=== PATIENT | female | born 1960 | race African-American/Black ===

== ENCOUNTER 2022-08-10 09:15 | Emergency (ER) | payer MEDICARE, MEDICAID ==
[~2022-08-10] VITALS: Ht 167.6 cm; Wt 145.5 kg
[~2022-08-10 09:15] MED LIST: ALBU1AER4 IN; CARI-277 PO; DOCU-94 PO; METF500T PO; MONT10TA23 PO; PAR20T PO; SIMV40TA42 PO; VALS40TA2 PO
[2022-08-10] MEDS ORDERED: MECLIZINE HCL 25 MG TAB PO ONE (09:45)
[2022-08-10 10:14] LABS: Basophils # (auto) 0.1 10 ^3/uL (0-0.2); Eosinophils # (auto) 0.1 10 ^3/uL (0-0.8); Eosinophils % (auto) 2.1 % (0.0-7.0); Hematocrit 42.6 % (36.0-46.0); Hemoglobin 14.2 g/dL (12.2-16.2); Lymphocytes # (auto) 1.8 10 ^3/uL (0.4-5.4); Lymphocytes % (auto) 28.8 % (10.0-50.0); Mean Corpuscular Hemoglobin 31.3 pg (28.0-32.0); Mean Corpuscular Hgb Conc. 33.3 g/dL (32.0-36.0); Mean Corpuscular Volume 93.9 fL (80.0-100.0); Monocytes # (auto) 0.4 10 ^3/uL (0-1.3); Monocytes % (auto) 6.2 % (0.0-12.0); Neutrophils # (auto) 3.9 10 ^3/uL (1.6-8.6); Neutrophils % (auto) 61.9 % (37.0-80.0); Nucleated Red Blood Cells % 0.4 %; Red Blood Cells 4.54 10^6/uL (4.0-5.20); Red Cell Distribution Width 13.6 % (11.8-14.3); White Blood Cell 6.3 10^3/uL (4.4-10.8)
[2022-08-10 10:20] LABS: Albumin 3.6 g/dL (3.4-5.0); Calcium 8.5 mg/dL (8.5-10.1); Potassium 4.1 mmol/L (3.5-5.1)
[2022-08-10 10:23] LABS: BUN/Creatinine Ratio 17.7 (10.0-20.0); Bilirubin, Total 0.5 mg/dL (0.2-1.0); Total Protein 6.9 g/dL (6.4-8.2)
[2022-08-10] MEDS ORDERED: IOHEXOL 350 MG/ML 100ML IJ ONE (13:22)
[2022-08-10 14:43] VITALS: BP 117/69
== END 2022-08-10 14:40 | disposition home or self-care (01) ==
LOC: ER 09:15
DX: R42 Dizziness and giddiness (principal); R79.1 Abnormal coagulation profile; R07.9 Chest pain, unspecified; M54.9 Dorsalgia, unspecified; I10 Essential (primary) hypertension; E11.9 Type 2 diabetes mellitus without complications; E78.5 Hyperlipidemia, unspecified; J45.909 Unspecified asthma, uncomplicated; Z85.3 Personal history of malignant neoplasm of breast; Z90.89 Acquired absence of other organs
CPT/HCPCS: 36415; 70450; 71045; 71260; 74177; 80053; 82962; 84484; 85025; 85379; 93005; 99285; J8597; Q9967

== ENCOUNTER 2024-10-05 09:52 | Emergency (ER) | payer MEDICARE, MEDICAID ==
[~2024-10-05] VITALS: Ht 167.6 cm; Wt 129.0 kg
[2024-10-05 09:53] VITALS: BP 98/53; RESP 15; TEMP 97.8; O2SAT 96
[2024-10-05 10:26] VITALS: PULSE 103
--- NOTE | 2024-10-05 10:26 | ED.PDOC ---
HPI (NEURO) HPI Comments 64 y/o F, with PMHx pf asthma, cancer, DM, HLD, and HTN presents to the ED for CC of dizziness. Patient states, she has been experiencing symptoms of dizziness [id number]. Patient reports, symptoms to intensify when standing up and ambulating. Patient further c/o associated bilateral shoulder pain. Patient denies trauma, injury, fall, photophobia, nausea, vomiting, or headache with aura. No other symptoms or modifying factors are present at this time. Chief Complaint: Dizziness Time Seen by MD: 10:20 Primary Care Provider: ABHIJIT Reviewed Notes: Nurses Notes, Medications, Allergies Information Source: Patient Mode of Arrival: Ambulatory Severity: Moderate Dizziness/Weakness Severity: Does not affect activitie Headache Severity: None Timing: Weeks Duration: Since onset Prehospital treatment: None Onset: At rest Circumstances: Spontaneous Symptoms: Vertigo History of: None Modifying factors: Nothing Associated Signs and Symptoms: None Past Medical History PAST MEDICAL HISTORY: Asthma, Cancer, DM, High Lipids, HTN Surgical History: Tonsillectomy SPEEDER TENDER History: No Pertinent SPEEDER TENDER History Family History Family History: No family hx of DM, No family hx of Heart sarina, No family hx of HTN Social History Smoker: Non-Smoker Alcohol: Denies ETOH Use Drugs: Denies Drug Use Lives In: Home Constitutional: denies: chills, diaphoresis, fatigue, fever, malaise, sweats, weakness, others EENTM: denies: blurred vision, double vision, ear bleeding, ear discharge, ear drainage, ear pain, ear ringing, eye pain, eye redness, hearing loss, mouth pain, mouth swelling, nasal discharge, nose bleeding, nose congestion, nose pain, photophobia, tearing, throat pain, throat swelling, voice changes, others Respiratory: denies: cough, hemoptysis, orthopnea, SOB at rest, shortness of breath, SOB with excertion, stridor, wheezing, others Cardiovascular: denies: chest pain, dizzy spells, diaphoresis, Dyspnea on exertion, edema, irregular heart beat, left arm pain, lightheadedness, palpitations, PND, syncope, others Gastrointestinal: denies: abdomen distended, abdominal pain, blood streaked bowels, constipated, diarrhea, dysphagia, difficulty swallowing, hematemesis, melena, nausea, poor appetite, poor fluid intake, rectal bleeding, rectal pain, vomiting, others Genitourinary: denies: abnormal vagina bleeding, burning, dyspareunia, dysuria, flank pain, frequency, hematuria, incontinence, pain, , vagina discharge, urgency, others Neurological: reports: dizziness; denies: fainting, headache, left sided numbness, left sided weakness, numbness, paresthesia, pre-existing deficit, right sided numbness, right sided weakness, seizure, speech problems, tingling, tremors, weakness, others Musculoskeletal: denies: back pain, gout, joint pain, joint swelling, muscle pain, muscle stiffness, neck pain, others Integumetry: denies: bruises, change in color, change in hair/nails, dryness, laceration, lesions, lumps, rash, wounds, others Allergic/Immunocompromised: denies: Difficulty Healing, Frequent Infections, Hives, Itching, others Hematologic/Lymphatic: denies: anemia, blood clots, easy bleeding, easy bruising, swollen glands, others Endocrine: denies: excessive hunger, excessive sweating, excessive thirst, excessive urination, flushing, intolerance to cold, intolerance to heat, unexplained weight gain, unexplained weight loss, others Psychiatric: denies: anxiety, bipolar disorder, depression, hopeless, panic disorder, schizophrenia, sleepless, suicidal, others All Other Systems: Reviewed and Negative Physical Exam General Appearance: Moderate Distress, Obese HEENT: Normal ENT Inspection, Pharynx Normal, TMs Normal Neck: Full Range of Motion, Non-Tender, Normal, Normal Inspection Respiratory: Other (Coarse breath sounds) Cardiovascular: No Edema, No JVD, No Murmur, No Gallop, Normal Peripheral Pulses, Regular Rate/Rhythm Breast Exam: Deferred Gastrointestinal: No Organomegaly, Non Tender, No Pulsatile Mass, Normal Bowel Sounds, Soft Genitalia: Deferred Pelvic: Deferred Rectal: Deferred Extremities: No calf tenderness, Pedal edema Musculoskeletal : Apperance: Normal Neurologic: Alert, No Motor Deficits, No Sensory Deficits Cerebellar Function: NOT DONE Reflexes: NOT DONE Skin: Normal Color Peripheral Pulses: 3+ Radial (R), 3+ Radial (L) Lymphatic: No Adenopathy EKG EKG : Pulse Rate (adult): 103 [place]: Normal Cardiac Rhythm: ST Block: LBBB Hypertrophy: None ST: Normal Was a procedure done? Was a procedure done?: No Differential Diagnosis (SZ) Seizure: Psychogenic Seizure, Closed Head Injury, CVA/TIA General Weakness: Vertigo: central, Vertigo: peripheral X-Ray, Labs, Meds, VS Vital Signs Date Time Temp Pulse Resp B/P (MAP) Pulse Ox O2 Delivery O2 Flow Rate FiO2 10/05/24 10:26 103 10/05/24 10:03 103 10/05/24 09:53 97.8 101 15 98/53 96 97.8 Lab Test 10/05/24 11:28 Range/Units White Blood Count 7.9 4.4-10.8 10^3/uL Red Blood Count 4.49 4.0-5.20 10^6/uL Hemoglobin 14.1 12.2-16.2 g/dL Hematocrit 41.4 36.0-46.0 % Mean Corpuscular Volume 92.1 80.0-100.0 fL Mean Corpuscular Hemoglobin 31.4 28.0-32.0 pg Mean Corpuscular Hemoglobin Concent 34.1 32.0-36.0 g/dL Red Cell Distribution Width 13.7 11.8-14.3 % Platelet Count 335 140-450 10^3/uL Mean Platelet Volume 7.8 6.9-10.8 fL Neutrophils (%) (Auto) 60.7 37.0-80.0 % Lymphocytes (%) (Auto) 29.9 10.0-50.0 % Monocytes (%) (Auto) 7.6 0.0-12.0 % Eosinophils (%) (Auto) 1.3 0.0-7.0 % Basophils (%) (Auto) 0.5 0.0-2.0 % Neutrophils # (Auto) 4.8 1.6-8.6 10 ^3/uL Lymphocytes # (Auto) 2.4 0.4-5.4 10 ^3/uL Monocytes # (Auto) 0.6 0-1.3 10 ^3/uL Eosinophils # (Auto) 0.1 0-0.8 10 ^3/uL Basophils # (Auto) 0 0-0.2 10 ^3/uL Nucleated Red Blood Cells 0.0 % Sodium Level 140 136-145 mmol/L Potassium Level 3.0 L 3.5-5.1 mmol/L Chloride Level 98 98-107 mmol/L Carbon Dioxide Level 32 H 20-31 mmol/L Anion Gap 10 5-15 Blood Urea Nitrogen 34 H 9-23 mg/dL Creatinine 1.78 H 0.550-1.02 mg/dL Glomerular Filtration Rate Calc 31 >90 mL/min BUN/Creatinine Ratio 19.1 10.0-20.0 Serum Glucose 101 74-106 mg/dL Calcium Level 9.6 8.7-10.4 mg/dL [facility] [id number] [place] [address] Ph: [phone] DIAGNOSTIC IMAGING Diagnostic Imaging Report : [id number] Signed PATIENT: SUSANA LAM ACCT: [id number] UNIT: [id number] : 1960 LOC: ER ROOM / BED: / AGE / SEX: 64 / F ADM STATUS: REG ER SERVICE 111 ORDERING PHYSICIAN: EDITA BREWER MD PROCEDURE(s): CXRP - CHEST PORTABLE REASON: sob ORDER NUMBER(s): [id number], ACCESSION NUMBER(s): [id number] CHEST RADIOGRAPH Indication: sob Technique: Single frontal view of the chest was obtained COMPARISON: CT CT CHEST/AB/PL W CON- IV ONLY on DOS: 08/10/22, XY CHEST PORTABLE on DOS: 08/10/22 FINDINGS: Lines and Tubes: None Lungs: Clear Pleura: No effusion. No pneumothorax. Cardiomediastinal contours: Unremarkable Bones: Unremarkable IMPRESSION: No acute disease. ATED BY: NAMAN SERRANO MD DICTATED DATE/TIME: 10/05/241207 SIGNED BY: NAMAN SERRANO MD SIGNED DATE/TIME: 10/05/241207 CC: Patient alert. Complaining of dizziness shortness a breath. She does have shortness a breath upon walking. Answering questions pain Unable to complete sentences after walking few steps. Possibly will need echocardiogram. Cardiology consultation. Possibly will need Lasix. Potassium was low. Was given potassium. Explained to the patient. Possibly hypotensive cardiomyopathy. Continue monitoring. Time of 1ST Reevaluation: 10:50 Reevaluation 1ST: Unchanged Patient Education/Counseling: Diagnosis, Treatment Family Education/Counseling: No Family Present Departure 1 Departure Time of Disposition: 13:10 Impression: Primary Impression: CHF (congestive heart failure) Qualified Codes: I50.43 - Acute on chronic combined systolic (congestive) and diastolic (congestive) heart failure Additional Impressions: HTN (hypertension) Qualified Codes: I10 - Essential (primary) hypertension Hypokalemia Disposition: ADMITTED INPATIENT Admit to: Med Surg Condition: Guarded Critical Care Note Critical Care Time?: No Stability Stability form required: No Heart Score Heart Score: Heart Score Response (Comments) Value History Slightly Suspicious 0 EKG Normal 0 Age >65 2 Risk Factors >3 or Hx ASHD 2 Troponin Normal limit 0 Total 4 I personally scribed for EDITA BREWER MD ([email or web address]) on 10/05/24 at 10:26. Electronically submitted by Ciara Aquino ([facility]). I personally scribed for EDITA BREWER MD ([email or web address]) on 10/05/24 at 10:32. Electronically submitted by Ciara Aquino ([facility]). I personally scribed for EDITA BREWER MD ([email or web address]) on 10/05/24 at 10:45. Electronically submitted by Ciara Aquino ([facility]). I personally scribed for EDITA BREWER MD ([email or web address]) on 10/05/24 at 12:49. Electronically submitted by Ciara Aquino ([facility]). EDITA BREWER MD Oct 05, 2024 10:26
[2024-10-05 11:56] LABS: Hematocrit 41.4 % (36.0-46.0); Hemoglobin 14.1 g/dL (12.2-16.2); Mean Corpuscular Hemoglobin 31.4 pg (28.0-32.0); Mean Corpuscular Volume 92.1 fL (80.0-100.0); Nucleated Red Blood Cells % 0.0 %
[2024-10-05 11:59] LABS: Sodium 140 mmol/L (136-145)
[2024-10-05 12:00] LABS: Anion Gap 10 (5-15); Calcium 9.6 mg/dL (8.7-10.4)
[2024-10-05 12:01] LABS: Carbon Dioxide 32 mmol/L (20-31); Chloride 98 mmol/L (98-107); Potassium 3.0 mmol/L (3.5-5.1)
[2024-10-05 12:05] LABS: BUN/Creatinine Ratio 19.1 (10.0-20.0); Glucose 101 mg/dL (74-106)
[2024-10-05 12:06] LABS: Blood Urea Nitrogen 34 mg/dL (9-23)
--- NOTE | 2024-10-05 12:10 | DVH ---
CHEST RADIOGRAPH Indication: sob Technique: Single frontal view of the chest was obtained COMPARISON: CT CT CHEST/AB/PL W CON- IV ONLY on DOS: 08/10/22, XY CHEST PORTABLE on DOS: 08/10/22 FINDINGS: Lines and Tubes: None Lungs: Clear Pleura: No effusion. No pneumothorax. Cardiomediastinal contours: Unremarkable Bones: Unremarkable IMPRESSION: No acute disease.
[2024-10-05] MEDS: POTASSIUM EFFERVESENT TAB 25 MEQ PO ONE (13:16)
--- NOTE | 2024-10-07 12:19 | ECG ---
[facility] Test Date: 2024-10-05 Test Time: 10:03:24 Pat Name: SUSANA LAM Department: ED Room: Gender: F [address] Clerk: tam : 1960 Requested By: EDITA BREWER Order Number: [id number] Reading MD: Boni Matos Measurements Intervals [place] Rate: 103 P: 35 [place]: 145 QRS: 20 QRSD: 137 T: 180 QT: 354 QTc: 464 Interpretive Statements Sinus tachycardia Left bundle branch block Baseline wander in lead(s) V1,V3,V4,V5,V6 Electronically Signed On 10-07-2024 22:26:06 PDT by Boni Matos Please click the below link to view image of tracing.
== END 2024-10-05 13:19 | disposition left against medical advice (07) ==
LOC: ER 09:52
DX: I11.0 Hypertensive heart disease with heart failure (principal); I50.9 Heart failure, unspecified; E87.6 Hypokalemia; E11.9 Type 2 diabetes mellitus without complications; E78.5 Hyperlipidemia, unspecified; J45.909 Unspecified asthma, uncomplicated; Z90.89 Acquired absence of other organs; Z85.9 Personal history of malignant neoplasm, unspecified
CPT/HCPCS: 36415; 71045; 80048; 82947; 85025; 93005